=== PATIENT | male | born 1940 | race Caucasian/White ===

== ENCOUNTER → 2020-05-23 | Outpatient (CLI) | payer OTHER ==
[~2020-05-23] MED LIST: ASPIRIN EC81 M1 PO; COZAAR 25 MG TA25 M1 PO; DIAZEPAM2 MG PO; FENOFIBRATE200 MG PO; FUROSEMIDE 40 M40 M1 PO; HYDROCODON-ACE1 EAC7 PO; INSULIN AS100 UNIT/3 SUBQ; MIDODRINE HCL2.5 M1 PO; MULTI VITAMIN1 EACH PO; MYRBETRIQ25 MG PO; NOVOLOG FL100 UNIT/M SUBQ; TOLTERODINE TART4 MG PO; VICTOZA0.6 MG/0.1 SUBQ
[2020-05-23 14:21] LABS: HEMATOCRIT 37.7 % (42.0-52.0); HEMOGLOBIN 12.5 gm/dL (14.0-18.0); MCH 30.4 pg (26.0-34.0); MCHC 33.1 g/dL (28.0-37.0); MCV 91.6 fL (80.0-100.0); RBC 4.11 mil/uL (4.50-6.00); RDW 14.5 % (10.5-14.5); WBC 7.1 thou/uL (4.0-11.0)
[2020-05-23 14:33] LABS: ALBUMIN 3.4 g/dL (3.4-5.0); CALCIUM 9.9 mg/dL (8.5-10.1); POTASSIUM 4.3 mmol/L (3.5-5.1); TOTAL BILIRUBIN 0.5 mg/dL (0.2-1.0); TOTAL PROTEIN 7.1 g/dL (6.4-8.2)
--- NOTE | 2020-05-24 10:37 | EKG ---
[facility] [place] [address] ELECTROCARDIOGRAM REPORT Name: NATE AZUL Room #: REG CLI M.R.#: [id number] Admission: 05/23/20 Attend Phys: Maykel Mcguire MD Discharge: Date of : 42 Report #: [id number] THIS REPORT FOR: cc: Malvin Humphreys MD, David MD Lundgren,Brandon Shaw MD [facility] ~ THIS REPORT FOR: //name// [facility] Test Date: 2020-05-23 Test Time: 14:20:39 Pat Name: NATE AZUL Department: Room: Gender: Lifestyle Coordinator: DWAYNE : 1940 Requested By: Maykel Mcguire Order Number: [id number] MD: Brandon Britton Measurements Intervals [place] Rate: 69 P: [place]: QRS: -51 QRSD: 96 T: 58 QT: 417 QTc: 447 Interpretive Statements Atrial fibrillation Inferior infarct, old Poor R wave progression No previous ECG available for comparison Electronically Signed On 05-24-2020 10:37:39 INFECTION PREVENTION SPECIALIST by Brandon Britton [email or web address] <ELECTRONICALLY SIGNED> By: Brandon Britton MD, [facility] 05/24/20 1037 1420 19 Brandon Britton MD, FACC /EPI
== END ==
LOC: NEURO 13:20
PROVIDERS: ATTEND Otolaryngology Plastic Surgery within the Head & Neck
DX: C44.222 Squamous cell carcinoma of skin of right ear and external auricular canal (principal); H61.111 Acquired deformity of pinna, right ear; Z79.82 Long term (current) use of aspirin; I48.91 Unspecified atrial fibrillation

== ENCOUNTER → 2020-05-23 | Outpatient (CLI) | payer OTHER | LOC: LAB 14:38 | PROVIDERS: ATTEND Otolaryngology Plastic Surgery within the Head & Neck | DX: Z01.812 Encounter for preprocedural laboratory examination (principal); Z20.828 Contact with and (suspected) exposure to other viral communicable diseases ==

== ENCOUNTER 2020-05-27 11:50 | Inpatient (IN) | payer OTHER ==
[~2020-05-27] VITALS: Ht 175.3 cm; Wt 107.9 kg
--- NOTE | 2020-05-27 12:43 | EKG ---
[facility] [place] [address] ELECTROCARDIOGRAM REPORT Name: NATE AZUL Room #: 150-2 [facility] M.R.#: [id number] Admission: 05/27/20 Attend Phys: Maykel Mcguire MD Discharge: Date of : 42 Report #: [id number] THIS REPORT FOR: cc: Malvin Humphreys MD,Malvin Magallanes,Ge [facility] ~ THIS REPORT FOR: //name// [facility] Test Date: 2020-05-27 Test Time: 12:35:53 Pat Name: NATE AZUL Department: Room: [facility] Gender: M Fiberglass Machine Operator: HARIS : 1940 Requested By: Stiven Bain Order Number: [id number] MD: Ge Magallanes Measurements Intervals [place] Rate: 71 P: SC: QRS: -28 QRSD: 112 T: 19 QT: 405 QTc: 441 Interpretive Statements Atrial fibrillation Inferior infarct, old Anterior infarct, old Baseline wander in lead(s) II,III,aVF Compared to ECG 05/23/2020 14:20:39 Poor R-wave progression no longer present Myocardial infarct finding still present Electronically Signed On 05-27-2020 12:43:14 FLIGHT ATTENDANT/INFLIGHT SUPERVISOR by Ge Magallanes [email or web address] <ELECTRONICALLY SIGNED> By: Ge Magallanes MD, FACC 05/27/20 1243 1235 1235 Ge Magallanes MD, FAC /EPI
[2020-05-27 13:06] VITALS: BP 154/63
--- NOTE | 2020-05-27 18:00 | NUR ---
ASSUMED CARE OF PT AT APPROX 1630 FROM OR D/T AFIB. ADMISSION HISTORY, ASSESSMENT AND EDUCATION COMPLETE. PT SETTLED IN ROOM, DINNER ORDERED. PT HAS SIGNIFICANT LOOSE COUGH. NOTIFIED , WHO REPLIED "WILL ORDER". WILL CONTINUE TO MONITOR AND FOLLOW POC.
[2020-05-27 20:17] VITALS: BP 127/52
--- NOTE | 2020-05-28 03:13 | NUR ---
PT ADMITTED YESTERDAY FOR AFIB/BRADYCARDIA. PT REMAINED AFIB ON THE MONITOR WITH HR DROPPING INTO 30s AND 40s WHEN ASLEEP. DENIES CHEST PAIN. PT NOTED TO HAVE SOB ON EXERTION. O2 SATs STABLE. PT HAS A PERSISTENT DRY COUGH. PT ALERT AND ORIENTED. WILL CONTINUE TO MONITOR
[2020-05-28 04:29] VITALS: BP 104/49
[2020-05-28 04:50] LABS: CREATININE 2.5 mg/dL (0.7-1.3); POTASSIUM 5.8 mmol/L (3.5-5.1)
[2020-05-28 04:54] LABS: HEMATOCRIT 35.3 % (42.0-52.0); HEMOGLOBIN 11.3 gm/dL (14.0-18.0); MCH 30.2 pg (26.0-34.0); MCHC 32.1 g/dL (28.0-37.0); MCV 94.1 fL (80.0-100.0); RBC 3.75 mil/uL (4.50-6.00); RDW 14.6 % (10.5-14.5); WBC 8.5 thou/uL (4.0-11.0)
[2020-05-28 08:27] VITALS: BP 115/43
[2020-05-28 08:48] LABS: ALBUMIN 3.3 g/dL (3.4-5.0); DIRECT BILIRUBIN 0.1 mg/dL (<0.1-0.2); TOTAL BILIRUBIN 0.3 mg/dL (0.2-1.0); TOTAL PROTEIN 7.3 g/dL (6.4-8.2)
--- NOTE | 2020-05-28 10:26 | NUR ---
Patient admits with afib, He is not in room he is rec chest xray. Requested by RN to inquire has a cab ride to hospital. Sp with . Unsure who arranged cab ride but called [employer] and canelled cab ride. Patient resides at home with . All Needs on one level. He uses a cane as needed. He cont to drive and car here at [facility] in parking lot. Patient to have a pacemaker tomorrow. casemgt following for dc needs.
[2020-05-28 11:38] VITALS: BP 114/50
--- NOTE | 2020-05-28 12:57 | 2DMMODE ---
[facility] [place] [address] 2 D/M-MODE ECHOCARDIOGRAM Name: NATE AZUL Room #: 213-P ADM IN M.R.#: [id number] Admission: 05/27/20 Attend Phys: Maykel Mcguire MD Discharge: Date of : 42 Report #: [id number] THIS REPORT FOR: cc: Malvin Humphreys MD,Malvin Gilbert,Telly Singh MD ~ APPROVED REPORT Study performed: 05/28/2020 10:59:18 EXAM: Comprehensive 2D, Doppler, and color-flow Echocardiogram Patient Location: Bedside Room #: 213 Status: routine BSA: 2.28 HR: 57 bpm BP: 115/43 mmHg Rhythm: Atrial Fibrillation Other Information Study Quality: Good Indications COPD Pulmonary Hypertension Diabetes Atrial Fibrillation Dyspnea Hypertension/HDD 2D Dimensions RVDd: 48.87 mm IVSd: 7.92 (7-11mm) LVOT Diam: 20.85 (18-24mm) LVDd: 52.20 mm PWd: 8.13 (7-11mm) Ascending Ao: 30.44 (22-36mm) LVDs: 33.20 (25-40mm) Aortic Root: 30.41 mm IVC: 30.00 mm Volumes Left Atrial Volume (Systole) Single Plane 4CH: 63.87 mL Single Plane 2CH: 65.96 mL LA ESV Index: 31.00 mL/m2 Aortic Valve [facility] [address] [place] [address] 2 D/M-MODE ECHOCARDIOGRAM Name: NATE AZUL Room #: 213-P ADM IN M.R.#: [id number] Admission: 05/27/20 Attend Phys: Maykel Mcguire MD Discharge: Date of : 42 Report #: [id number] AoV Peak Mathieu.: 2.60 m/s AO Peak Gr.: 27.13 mmHg LVOT Max P.54 mmHg AO Mean Gr.: 13.54 mmHg LVOT Mean P.04 mmHg AO V2 Mean: 1.68 m/s LVOT Max V: 0.96 m/s AO V2 VTI: 53.41 cm LVOT Mean V: 0.66 m/s DARLENE (VTI): 1.34 cm2 LVOT V1 VTI: 21.01 cm DARLENE Vmax: 1.26 cm2 SV (LVOT): 71.68 mL Pulmonary Valve PV Peak Mathieu.: 0.95 m/s PV Peak Gr.: 3.59 mmHg Tricuspid Valve TR Peak Mathieu.: 4.08 m/s TR Peak Gr.: 66.63 mmHg PA Pressure: 82.00 mmHg Left Ventricle The left ventricle is normal size. There is normal LV segmental wall motion. There is normal left ventricular wall thickness. The left ventricular systolic function is normal. The left ventricular ejection fraction is within the normal range. LVEF is 55-60%. This study is not technically sufficient to allow evaluation of the LV diastolic function due to atrial fibrillation. Right Ventricle Right ventricle is dilated. Right ventricular systolic function is borderline normal. Atria Left atrium is at the upper limits of normal. Right atrium is dilated. Aortic Valve The aortic valve is normal in structure. Aortic valve is calcified. No aortic regurgitation is present. Mild aortic stenosis. Mitral Valve The mitral valve is normal in structure. Mild mitral regurgitation. No evidence of mitral valve stenosis. Tricuspid Valve The tricuspid valve is normal in structure. There is moderate tricuspid regurgitation. Estimated PAP 76 mmHg. There is severe pulmonary hypertension. [facility] [place] [address] [place] [address] 2 D/M-MODE ECHOCARDIOGRAM Name: NATE AZUL Room #: 213-P ADM IN M.R.#: [id number] Admission: 05/27/20 Attend Phys: Maykel Mcguire MD Discharge: Date of : 41 Report #: [id number] Pulmonic Valve The pulmonary valve is normal in structure. Trace to mild pulmonic regurgitation. Great Vessels The aortic root is normal in size. The inferior vena cava is dilated with no inspiratory collapse. Pericardium There is no pericardial effusion. <Conclusion> The left ventricle is normal size. There is normal left ventricular wall thickness. The left ventricular systolic function is normal. Right ventricle is dilated. Right atrium is dilated. Mild aortic stenosis. Mild mitral regurgitation. There is moderate tricuspid regurgitation. Estimated PAP 76 mmHg. There is severe pulmonary hypertension. <ELECTRONICALLY SIGNED> By: Telly Gilbert MD 05/28/20 1257 1257 1257 Telly Gilbert MD /INF
--- NOTE | 2020-05-28 14:58 | O ---
[facility] [place] [address] OPERATIVE REPORT Name: NATE AZUL Room #: 213-P ADM IN M.R.#: [id number] Admission: 05/27/20 Attend Phys: Maykel Mcguire MD Discharge: Date of : 42 Report #: [id number] THIS REPORT FOR: cc: Malvin Humphreys MD,Malvin Mcguire,Maykel Singh MD ~ DATE OF SERVICE: 05/27/2020 PREOPERATIVE DIAGNOSES: 1. 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 2. Squamous cell carcinoma, right pinna status post Mohs surgery on 05/23/[address] Watson. 3. Severe interstitial lung disease. 4. New onset atrial fibrillation. 5. Insulin-dependent diabetes, poorly controlled. POSTOPERATIVE DIAGNOSES: 1. 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 2. Squamous cell carcinoma, right pinna status post Mohs surgery on 05/23/[address] Watson. 3. Severe interstitial lung disease. 4. New onset atrial fibrillation. 5. Insulin-dependent diabetes, poorly controlled. OPERATIONS PERFORMED: 1. Delayed myocutaneous flap reconstruction, right pinna first stage. 2. Full thickness skin graft abdomen to postauricular sulcus. SURGEON: Maykel Mcguire MD ANESTHESIA: General endotracheal. INDICATIONS: The patient is a 79-year-old male referred urgently from his Mohs surgeon, Dr. Watson on Tuesday afternoon for otolaryngic evaluation and reconstruction of a Mohs defect, right pinna after excision of squamous cell carcinoma requiring 2 stages for clearance. This was a through and through defect with exposed cartilage, about 50% of the pinna was excised in the middle portion to the external auditory meatus. The postauricular skin was intact. The patient was placed on antibiotics and recommended for reconstruction. In addition, his cosmetic dentist in [place] was consulted. The patient is in very poor health with severe interstitial lung disease, hypoxemia, uncontrolled insulin-dependent diabetes and on preoperative EKG was found to have new onset atrial fibrillation. Because of the exposed cartilage, this was emergent surgery in order to get this closed before it gets infected. DESCRIPTION OF PROCEDURE: The patient was brought to the operating room and [address] [address] OPERATIVE REPORT Name: NATE AZUL Room #: 213-P [facility] IN .R.#: [id number] Admission: 05/27/20 Attend Phys: Maykel Mcguire MD Discharge: Date of : 41 Report #: [id number] placed supine on the operating table. After adequate general anesthesia was achieved via endotracheal intubation, he was turned 180 degrees with the right ear up. Planned incision was then discussed and decided to include a myofascial first stage delayed flap reconstruction for reconstruction of the ventral surface of the pinna. In addition, then a full-thickness skin graft folded to recreate the postauricular sulcus. This was elected to take this from his abdomen for thicker skin. The head, neck and abdomen were then prepped with Betadine. He was draped in sterile fashion. The defect was then measured and is a 2.5 x 6 cm defect. This was then drawn on to the skin of the abdomen and then the edges elongated in a fusiform excision. This was injected with 1% Xylocaine with 1:100,000 epinephrine. The skin was then incised full-thickness and placed in a saline wrapped gauze. Wide undermining was then undertaken, hemostasis with bipolar cauterization. This was then closed on itself with interrupted 3-0 Vicryl deep dermal sutures and 35 wide lacie on skin. Sterile dressing was then applied. The skin graft was then defatted as a full thickness graft and then folded into the defect. At this point, the flap was then created 2.5 cm. This was incised as a posteriorly based vascular flap and left attached posteriorly to keep this vascularized. This was folded posteriorly and then the graft inset into this defect there and then folded as a postauricular sulcus and then back up to the back side of the partially amputated pinna. This was then sutured in place with interrupted 4-0 Vicryl deep dermal sutures and 4-0 chromic simple interrupted on skin. The flap, after inset, was then customized and the tip of the fusiform excision amputated, so that this could be sewn down to the fascia underneath a vascularized flap. The under folding was then sutured to the pinna using the same technique of 4-0 Vicryl deep dermal sutures and then 4-0 chromic on skin. At this point, once the skin flap was inset, attention was then turned to the flap. This was then advanced to reconstruct the ventral surface of the pinna. This was sutured to the cut edges with interrupted 4-0 Vicryl deep dermal sutures and then 4-0 chromic sutures on skin. This was arranged as a mirror image of this such that when it was inset, this fit nicely into the defect including inferiorly along the ear lobule. The inferior portion was the ear lobule which was then sutured to the flap. The vascular flap was left intact posteriorly, this will be the first stage reconstruction. He will require a second stage takedown of this flap usually in 6 weeks, but with the patient's diabetes and poor healing, this may be left to vascularized for 8-10 weeks. Bacitracin ointments were then applied to the sutures and a standard adult Senthil ear dressing were then applied. The patient was then returned to anesthesia. He did have 2 episodes of bradycardia during the procedure, the most dramatic at the end of the procedure, which was handled by Anesthesia and responded to ventilation and glycopyrrolate. The patient was then returned to recovery. He will be watched. Cardiology has been consulted for the patient's new onset atrial fibrillation and likely sick sinus syndrome. Internal medicine will also be consulted secondary to his severe interstitial lung disease and diabetes, which is uncontrolled. The patient will be watched at least overnight, if not for more days. [address] [address] OPERATIVE REPORT Name: NATE AZUL Room #: 213-P [facility] IN M.R.#: [id number] Admission: 05/27/20 Attend Phys: Maykel Mcguire MD Discharge: Date of : 41 Report #: [id number] DISCHARGE MEDICATIONS: Will include cephalexin 500 mg 1 q.i.d. for 10 days, Phenergan suppository 25 mg 1 per rectum q.4-6 hours p.r.n., hydrocodone and acetaminophen 7.5/325 one to two q.4-6 hours p.r.n. He is instructed on light activity, soft diet, water precautions for his ear. He will follow up with me in 1 week for takedown of the sutures and the dressing. <ELECTRONICALLY SIGNED> By: Maykel Mcguire MD 05/28/20 1458 1534 1806 Maykel Mcguire MD /bogdan
[2020-05-28 15:36] VITALS: BP 112/46
[2020-05-28 20:32] VITALS: BP 123/46
[2020-05-29] VITALS (10 sets, daily range): BP systolic 121–159; BP diastolic 47–93
[2020-05-29 03:06] LABS: GLYCOHEMOGLOBIN (HGB A1C) 10.2 % (4.8-5.6)
--- NOTE | 2020-05-29 03:49 | NUR ---
PT REMAINS ASYMPTOMATIC WITH AFIB BRADYCARDIA. DENIES CHEST PAIN, SOB, OR DIZZINESS. PT NPO SINCE MIDNIGHT FOR PACEMAKER PLACEMENT. WILL CONTINUE TO MONITOR VITALS AND FOLLOW POC.
[2020-05-29 06:13] LABS: ABSOLUTE NEUTROPHILS 5.6 thou/uL (1.4-8.2); BASOPHILS 1.1 % (0.0-2.0); EOSINOPHILS 5.2 % (0.0-3.0); HEMATOCRIT 36.8 % (42.0-52.0); HEMOGLOBIN 11.8 gm/dL (14.0-18.0); LYMPHOCYTES 20.4 % (24.0-44.0); MCH 30.2 pg (26.0-34.0); MCV 94.3 fL (80.0-100.0); MONOCYTES 9.3 % (1.0-8.0); PLATELET COUNT 299 thou/uL (150-400); RBC 3.91 mil/uL (4.50-6.00); RDW 14.9 % (10.5-14.5); WBC 8.7 thou/uL (4.0-11.0)
[2020-05-29 06:39] LABS: ALBUMIN 3.3 g/dL (3.4-5.0); CALCIUM 9.4 mg/dL (8.5-10.1); CREATININE 2.6 mg/dL (0.7-1.3); POTASSIUM 5.2 mmol/L (3.5-5.1); TOTAL BILIRUBIN 0.4 mg/dL (0.2-1.0); TOTAL PROTEIN 7.2 g/dL (6.4-8.2)
[2020-05-29 11:57] LABS: PROTIME 10.3 Seconds (9.3-11.4)
[2020-05-30 01:00] VITALS: BP 144/54
--- NOTE | 2020-05-30 04:14 | NUR ---
PT ALERT AND ORIENTED. S/P PACEMAKER PLACEMENT YESTERDAY. DENIES PAIN, NAUSEA , SOB, VOMITING OR DIARRHEA. PT INTERMITTENTLY HR DROPS INTO 30s AND 40s OVERNIGHT BUT PT IS ASYMPTOMATIC AND DOES NOT SUSTAIN. LEFT ARM IMMOBILIZER. NO DIZZINESS. WILL [id number] TO MONITOR.
[2020-05-30 04:15] VITALS: BP 148/54
[2020-05-30 07:10] VITALS: BP 149/69
--- NOTE | 2020-05-30 10:43 | P ---
[facility] [place] [address] PROCEDURE REPORT Name: NATE AZUL Room #: 213-P ADM IN M.R.#: [id number] Admission: 05/27/20 Attend Phys: Fili Gray MD Discharge: Date of : 41 Report #: [id number] THIS REPORT FOR: cc: Malvin Humphreys MD,Malvin Gray,Fili Cabrera MD ~ DATE OF SERVICE: 05/29/2020 PROCEDURE: Pacemaker implantation. PREOPERATIVE DIAGNOSES: 1. Symptomatic bradycardia. 2. Advanced AV joan disease. 3. Atrial fibrillation. HISTORY: The patient is a 79-year-old who was here for surgical procedure was having episodes of severe bradycardia. Intraoperatively, he was admitted and found to be in atrial fibrillation with a bradycardic ventricular response on no medications. An echo shows normal LV size and function with [id number]-epogue pulmonary hypertension. He has a history of pulmonary fibrosis and he is here for VVI pacemaker implantation. ANESTHESIA: The patient underwent MAC anesthesia with no anesthesia related complications. DESCRIPTION OF PROCEDURE: The patient underwent informed consent. We discussed the details of the procedure including the risks, which include but not limited to bleeding, infection, vascular damage, cardiac perforation, pneumothorax. He understood these risks and is willing to proceed. The patient was brought to EP laboratory in a fasting and sedated state, prepped and draped in sterile fashion. He received IV antibiotics and underwent a venogram showing patency of left axillary vein. Next, lidocaine was injected below the level of left clavicle. Incision was made, pocket was created over the prepectoral fascia. Access was obtained once the left axillary vein using the extrathoracic approach with the sheath positioned using modified Seldinger technique. Next, under fluoroscopy, lead was positioned in the right ventricular apex with adequate pacing and sensing thresholds. The lead was sutured to prepectoral fascia, connected to the device, pocket was irrigated and pocket was closed in 2 layers with surgical glue placed to outer skin layer. The patient awoke neurologically and hemodynamically intact. No complications and no significant bleeding. Implanted pacemaker was a Medtronic model # W3SR01, serial #[id number]. RV lead Medtronic model #5076, 58 cm, serial #[id number]. The lead demonstrated R waves of 5 millivolts, pacing impedance of 553 ohms and the pacing threshold 0.8 volts [facility] [address] [place] [address] PROCEDURE REPORT Name: NATE AZUL Room #: 213-P [facility] IN M.R.#: [id number] Admission: 05/27/20 Attend Phys: Fili Gray MD Discharge: Date of : 42 Report #: [id number] at 0.5 milliseconds. The device was programmed to VVIR 60-100 mode. CONCLUSIONS: 1. Successful pacemaker implantation. 2. Satisfactory ventricular pacing and sensing thresholds. <ELECTRONICALLY SIGNED> By: Fili Gray MD 05/30/20 1043 1237 1534 Fili Gary MD /bogdan
[2020-05-30 12:58] VITALS: BP 151/72
[2020-05-30 15:20] VITALS: BP 147/67
[2020-05-30] MEDS ORDERED: MUPIROCIN22 GM TOP (16:20)
--- NOTE | 2020-05-30 19:36 | NUR ---
RECEIVED PT'S CARE AROUND 0; PT. ON CHAIR; ALERT; PER PACEMAKER TECH PACEMAKER NO FUNCTIONING PROPERLY; AFIB; PHYSICIAN NOTIFIED; ORDERS RECEIVED; GONE FOR XRAY; PT. NOTIFIED NPO; [facility] UNDERSTANDING; GONE FOR PROCEDURE BEFORE 0830; BACK FROM PROCEDURE AFTER 1300; EDUCATED TO REMAINED ON BED AND USE URINAL; ST. UNDERSTANDING; VPACED ON THE MONITOR; ON CHRONIC O2; PRN PAIN MEDICATION GIVEN BEFORE SHIFT CHANGED; ASSESSMENT CHARGED; FOLLOWING POC; PASSED ON REPORT;
[2020-05-30 20:00] VITALS: BP 147/60
[2020-05-31 00:10] VITALS: BP 138/60
--- NOTE | 2020-05-31 02:58 | NUR ---
PT ALERT AND ORIENTED. S/P PACEMAKER. DENIES PAIN. HR IN 60s NO EPISODES OF BRADYCARDIA. DENIES CHEST PAIN, NAUSEA OR SOB. PT STAYED IN BED WHOLE NIGHT. WILL CONTINUE WITH POC.
[2020-05-31 03:37] VITALS: BP 153/53
[2020-05-31 08:02] VITALS: BP 156/69
[2020-05-31 10:38] LABS: ABSOLUTE NEUTROPHILS 7.1 thou/uL (1.4-8.2); BASOPHILS 0.8 % (0.0-2.0); EOSINOPHILS 2.9 % (0.0-3.0); HEMATOCRIT 38.1 % (42.0-52.0); HEMOGLOBIN 12.5 gm/dL (14.0-18.0); LYMPHOCYTES 13.9 % (24.0-44.0); MCH 30.3 pg (26.0-34.0); MCHC 32.9 g/dL (28.0-37.0); MONOCYTES 8.6 % (1.0-8.0); PLATELET COUNT 291 thou/uL (150-400); POLYS 73.8 % (36.0-66.0); RBC 4.14 mil/uL (4.50-6.00); RDW 14.6 % (10.5-14.5); WBC 9.6 thou/uL (4.0-11.0)
[2020-05-31 10:53] LABS: ALBUMIN 3.5 g/dL (3.4-5.0); CALCIUM 9.9 mg/dL (8.5-10.1); CREATININE 1.8 mg/dL (0.7-1.3); DIRECT BILIRUBIN 0.2 mg/dL (<0.1-0.2); POTASSIUM 4.7 mmol/L (3.5-5.1); TOTAL BILIRUBIN 0.6 mg/dL (0.2-1.0); TOTAL PROTEIN 7.1 g/dL (6.4-8.2)
[2020-05-31 11:58] VITALS: BP 131/50
[2020-05-31 15:50] VITALS: BP 138/56
--- NOTE | 2020-05-31 18:51 | NUR ---
ASSUMED CARE AT CHANGE SHIFT. ALERTX4, DENIES PAIN, SOB WITH WHEN WALKING WITH THERAPY. COULD NOT DC HOME DUE TO SAT'S IN 70" WHEN WORKING WITH PT. SURGERY DRESSING CHANGED PER ORDER. PACEMAKER SIGHT C/D/I. UP WITH STAND BY ASSIST. ABLE TO MAKE NEEDS KNOWN. UPDATED ON OXYGENATION NEEDS. PT CALM AND COMPLAINT WITH ALL CARES.
[2020-05-31 19:30] VITALS: BP 143/59
--- NOTE | 2020-06-01 03:52 | NUR ---
PT IS ALERT AND ORIENTED. CALM AND PLEASANT. SLEEPING IN THE RECLINER.2+ EDEMA TO BLE. PT STABLE ON /. MILD PAIN MANAGED BY NORCO.THE PACEMAKER SITE W/O HEMATOMA, RLQ HARVEST SITE ALSO IS FILM EXAMINER AND W/O ANY S/SX OF INFECTION.R EAR WITH DRSG INTACT.PT CALLS WITH NEEDS.
[2020-06-01 04:40] VITALS: BP 127/53
[2020-06-01 08:01] VITALS: BP 126/59
[2020-06-01 11:43] VITALS: BP 136/64
[2020-06-01 15:03] LABS: URINE BILIRUBIN NEGATIVE (Negative); URINE BLOOD NEGATIVE (Negative); URINE CLARITY CLEAR; URINE COLOR YELLOW; URINE GLUCOSE-RANDOM* 3+ (Negative); URINE KETONES NEGATIVE (Negative); URINE LEUKOCYTES-REFLEX NEGATIVE (Negative); URINE NITRITE-REFLEX NEGATIVE (Negative); URINE PROTEIN (DIPSTICK) NEGATIVE (Negative); URINE SPECIFIC GRAVITY 1.015 (1.005-1.035); URINE UROBILINOGEN 0.2 E.U./dl (0.2-1.0)
[2020-06-01 15:19] VITALS: BP 142/52
--- NOTE | 2020-06-01 18:03 | NUR ---
ASSUMED CARE AT CHANGE OF SHIFT. ALERT X4, DENIES SOB, DESATS WITH ADL'S. DENIES CHEST PAIN, CHRONIC PAIN MANAGED WITH PRN MEDS. 2L NASAL CANNULA SAME HOME. PT WILL HAVE RT EXERCISE TEST PRIOR TO DC. UP AB NIGHAT, BATHROOM PRIVLIDGES BM TODAY. LEFT EAR DRESSING CHANGED PER DOCTORS ORDERS. BILATERAL LE EDEMA. CALL LIGHT AND PERSONAL ITEMS IN REACH. CALLS FOR ASSISTANCE.
[2020-06-01 20:50] VITALS: BP 136/52
[2020-06-02 03:58] LABS: HEMATOCRIT 38.8 % (42.0-52.0); HEMOGLOBIN 12.6 gm/dL (14.0-18.0); MCH 29.8 pg (26.0-34.0); MCHC 32.3 g/dL (28.0-37.0); PLATELET COUNT 281 thou/uL (150-400); RBC 4.22 mil/uL (4.50-6.00); RDW 14.5 % (10.5-14.5); WBC 8.4 thou/uL (4.0-11.0)
[2020-06-02 04:22] LABS: ALBUMIN 3.3 g/dL (3.4-5.0); CALCIUM 9.9 mg/dL (8.5-10.1); CREATININE 1.5 mg/dL (0.7-1.3); MAGNESIUM 1.8 mg/dL (1.8-2.4); PHOSPHORUS 2.9 mg/dL (2.5-4.9); TOTAL BILIRUBIN 0.6 mg/dL (0.2-1.0); TOTAL PROTEIN 7.1 g/dL (6.4-8.2)
--- NOTE | 2020-06-02 04:24 | NUR ---
PROGRESS PT A/O X4 VSS, LUNGS CLEAR. INCISION TO RIGHT LOWER ABDOMEN WELL APPROXIMATED WITH INTACT SUTURES NO DRAINAGE NOTED WOUND BORDERS CLEAN DRY WITH NO REDNESS NOTED. RIGHT EAR COVERED WITH SURGICAL EAR CUP BANDAGE CHANGED BY DAY SHIFT AT SHIFT CHANGE. VOIDING PER URINAL, UP WITH SBA SWAIN CATHETER IN PLACE DRAING ORAGISH RED URINE SOME SCANT BLEEDING NOTED AFTER PT PULLED AT CATHETER. IV TO LF INFUSING 1/2NS@30CC/HR ORDERED. CIWA SCORE AT 5 ALL SHIFT PT DENIES AND AUDITORY, HALLUCINATIONS OR TACTILE SENSATION. FAINT TREMORS NOTED. PT'S BEHAVIOR IS APPRPRIATE.
[2020-06-02 05:29] VITALS: BP 126/52
[2020-06-02 07:35] LABS: ABSOLUTE NEUTROPHILS 4.8 thou/uL (1.4-8.2)
[2020-06-02 08:00] VITALS: BP 123/47
[2020-06-02] MEDS ORDERED: ELIQUIS5 MG PO (09:24)
[2020-06-02 10:28] VITALS: BP 126/52
--- NOTE | 2020-06-02 12:52 | NUR ---
PT ALERT AND ORIENTED X4. KAW. UP TO CHAIR. STEADY ON FEET. REST AND EXERCISE OX DONE THIS AM. PT ON HOME O2 AT 2L/NC. ORDER TO DISCHARGE HOME. HOME BY PRIVATE CAB AT 1245. DISCUSSED DISCHARGE INSTRUCTIONS WITH PT PRIOR TO DISCHARGE AND HE VERBALIZED UNDERSTANDING. IV AND TELE REMOVED PRIOR TO DISCHARGE.
--- NOTE | 2020-06-09 08:15 | P ---
[facility] [place] [address] PROCEDURE REPORT Name: NATE AZUL Room #: 213-P [facility] IN M.R.#: [id number] Admission: 05/27/20 Attend Phys: Fili Gray MD Discharge: 06/02/20 Date of : 42 Report #: [id number] THIS REPORT FOR: cc: Malvin Humphreys MD,Malvin Gray,Fili Cabrera MD ~ PREOPERATIVE DIAGNOSIS: Lead dislodgement. POSTOPERATIVE DIAGNOSIS: Lead dislodgement. HISTORY: The patient is a 79-year-old with history of symptomatic bradycardia, severe pulmonary hypertension, who underwent pacemaker implantation yesterday with a VVI device and the RV lead was noted to be dislodged. She is here for lead revision. ANESTHESIA: The patient underwent MAC anesthesia, no anesthesia related complications. DESCRIPTION OF PROCEDURE: The patient underwent informed consent. We discussed the details of the procedure including the risks, which include but not limited to bleeding, vascular damage, stroke, NV as well as cardiac perforation. He understood these risks and is willing to proceed. The patient was brought to EP laboratory in fasting and sedated state, prepped and draped in a sterile fashion, received IV antibiotics prior to initiation of the procedure. Next, the incision was opened. I took the device out of the pocket and disconnected the device from the leads and then under fluoroscopy the RV lead had dislodged into the right atrium. The lead was repositioned in the right ventricular apex. I looked in multiple views and we had adequate pacing and sensing thresholds. The lead was sutured to prepectoral fascia, connected to the device, was tested again and placed in the pocket. Pocket was irrigated with vancomycin. Pocket closed in 2 layers and closed with surgical glue. The device post implant demonstrated R waves of 4 millivolts, pacing impedance was 779 ohms, pacing threshold 0.75 volts at 0.4 milliseconds. Device was programmed to VVIR 60-100 mode. CONCLUSIONS: 1. Successful lead revision. 2. Satisfactory right ventricular pacing and sensing thresholds. <ELECTRONICALLY SIGNED> By: Fili Gray MD 06/09/20 0815 1226 2205 Fili Gray MD /nt
== END 2020-06-02 12:45 | disposition home or self-care (01) | DRG 242 ==
LOC: OR 11:50 → TBA 11:50 → OR 13:23 → 2N 15:48 → OR 15:48 → 2N 06-02 12:45
PROVIDERS: Internal Medicine; Nurse Practitioner; ADMIT Otolaryngology Plastic Surgery within the Head & Neck; ATTEND Internal Medicine Cardiovascular Disease
DX: I44.30 Unspecified atrioventricular block (principal); N17.0 Acute kidney failure with tubular necrosis; J84.9 Interstitial pulmonary disease, unspecified; T82.120A Displacement of cardiac electrode, initial encounter; J91.8 Pleural effusion in other conditions classified elsewhere; Z42.8 Encounter for other plastic and reconstructive surgery following medical procedure or healed injury; Z85.828 Personal history of other malignant neoplasm of skin; E78.5 Hyperlipidemia, unspecified; I48.91 Unspecified atrial fibrillation; J44.9 Chronic obstructive pulmonary disease, unspecified; J84.10 Pulmonary fibrosis, unspecified; E11.22 Type 2 diabetes mellitus with diabetic chronic kidney disease; E78.00 Pure hypercholesterolemia, unspecified; M19.90 Unspecified osteoarthritis, unspecified site; G89.4 Chronic pain syndrome; E66.01 Morbid (severe) obesity due to excess calories; I12.9 Hypertensive chronic kidney disease with stage 1 through stage 4 chronic kidney disease, or unspecified chronic kidney disease; D04.21 Carcinoma in situ of skin of right ear and external auricular canal; N18.30 Chronic kidney disease, stage 3 unspecified; G47.00 Insomnia, unspecified; H61.111 Acquired deformity of pinna, right ear; I27.20 Pulmonary hypertension, unspecified; Z79.4 Long term (current) use of insulin; Z68.35 Body mass index [BMI] 35.0-35.9, adult; Z82.49 Family history of ischemic heart disease and other diseases of the circulatory system; Z79.891 Long term (current) use of opiate analgesic; Z99.81 Dependence on supplemental oxygen; Z98.49 Cataract extraction status, unspecified eye; Z28.21 Immunization not carried out because of patient refusal; Y83.8 Other surgical procedures as the cause of abnormal reaction of the patient, or of later complication, without mention of misadventure at the time of the procedure; Y92.234 Operating room of hospital as the place of occurrence of the external cause
CPT/HCPCS: 10081; 50010; 50101; 50386; 50398; 51412; 56524; 56526; 56527; 56528; 57006; 62110; 62900; 70005

== ENCOUNTER → 2020-06-16 | Outpatient (CLI) | payer OTHER ==
[~2020-06-16] MED LIST changes: +ELIQUIS5 MG PO; +MUPIROCIN22 GM TOP
== END ==
LOC: SJCVC 13:00
PROVIDERS: ATTEND Internal Medicine Cardiovascular Disease
DX: I48.0 Paroxysmal atrial fibrillation (principal); I49.5 Sick sinus syndrome; I10 Essential (primary) hypertension; E78.5 Hyperlipidemia, unspecified; R60.9 Edema, unspecified; I27.20 Pulmonary hypertension, unspecified; R42 Dizziness and giddiness; E11.9 Type 2 diabetes mellitus without complications; Z79.899 Other long term (current) drug therapy; Z95.0 Presence of cardiac pacemaker